=== PATIENT | female | born 1975 ===

== ENCOUNTER 2017-09-29 00:04 | Emergency (ER) | payer SELFPAY ==
[2017-09-29 00:05] VITALS: BMI 24.9
[2017-09-29 00:29] VITALS: RESP 20
[2017-09-29] MEDS ORDERED: Sodium Chloride 0.9% 1,000 ML IV ONE (01:15)
[2017-09-29] MEDS ORDERED: Aluminum Hydroxide/Magnesium Hydroxide Susp (30 mL) PO STA (01:15)
--- NOTE | 2017-09-29 02:04 | C.PDOC ---
History Of Present Illness Patient is a 42 y/o female who presents to the ED with a complaint of abdominal pain that began today s/p eating an egg and cheese sandwich. Patient describes pain as episodes of crampy abdominal pain and associated with some nausea and six episodes of diarrhea. Denies any vomiting. Notes some dizziness and mild headache. Patient notes still feeling nauseous with mild FAIR in ER. No other physical complaints. Time Seen by Provider: 09/29/17 00:35 Chief Complaint (Nursing): Abdominal Pain History Per: Patient History/Exam Limitations: no limitations Onset/Duration Of Symptoms: Hrs (this morning) Current Symptoms Are (Timing): Still Present Context: Food Location Of Pain/Discomfort: Diffuse Quality Of Discomfort: Cramping Associated Symptoms: Nausea, Diarrhea. denies: Vomiting Last Bowel Movement: Today Recent travel outside of the [place]: No Past Medical History Reviewed: Historical Data, Nursing Documentation, Vital Signs Vital Signs: Last Vital Signs Temp 97.8 F 09/29/17 03:05 Pulse 60 09/29/17 03:05 Resp 20 09/29/17 03:05 BP 114/76 09/29/17 03:05 Pulse Ox 100 09/29/17 03:05 - Medical History PMH: Asthma Denies: Chronic Kidney Disease Surgical History: No Surg Hx Family History: States: No Known Family Hx - Social History Hx Tobacco Use: No Hx Alcohol Use: Yes Hx Substance Use: No - Immunization History Hx Tetanus Toxoid Vaccination: No Hx Influenza Vaccination: Yes (2017) Hx Pneumococcal Vaccination: No Review Of Systems Constitutional: Negative for: Fever, Chills Gastrointestinal: Positive for: Nausea, Abdominal Pain, Diarrhea. Negative for : Vomiting Neurological: Positive for: Headache, Dizziness Physical Exam - Physical Exam Appears: Well, Non-toxic, No Acute Distress Skin: Normal Color, Warm, Dry Head: Atraumatic, Normacephalic Oral Mucosa: Moist Chest: Symmetrical Cardiovascular: Rhythm Regular, No Murmur Respiratory: Normal Breath Sounds, No Rales, No Rhonchi, No Wheezing Gastrointestinal/Abdominal: Soft, No Tenderness, No Distention, No Guarding, No Rebound Extremity: Normal ROM (x4) Neurological/Psych: Oriented x3, Normal Speech, Normal Cognition Gait: Steady ED Course And Treatment - Laboratory Results Result Diagrams: 09/29/17 02:04 09/29/17 02:04 ECG: Interpreted By Me, Viewed By Me ECG Rhythm: Sinus Rhythm Interpretation Of ECG: short NC 100. QRS 84. QT 450. QTC 453. no ischemic changes Rate From EC (bpm) O2 Sat by Pulse Oximetry: 99 Progress Note: EKG, blood work, CBC ordered. Zofran, pepcid, maalox, GI cocktail administered. Disposition Counseled Patient/Family Regarding: Diagnosis, Need For Followup - Disposition Referrals: [facility] [Outside] [facility] [Outside] [facility] [Outside] Disposition: HOME/ ROUTINE Disposition Time: 02:54 Condition: GOOD Additional Instructions: return if sympotms return or worsen/ Prescriptions: Famotidine [Pepcid] 40 mg PO DAILY 5 Days #5 tablet Instructions: Viral Gastroenteritis, Acute Abdomen (Belly Pain), Adult (DC), Nausea and Vomiting, Adult (DC), Stomach Ache and Stomach Upset Forms: [facility] (Albanian) - Clinical Impression Clinical Impression: Abdominal wall pain, Nausea, Diarrhea - Scribe Statement The provider has reviewed the documentation as recorded by the Scribe Toña Weiss All medical record entries made by the Scribe were at my direction and personally dictated by me. I have reviewed the chart and agree that the record accurately reflects my personal performance of the history, physical exam, medical decision making, and the department course for this patient. I have also personally directed, reviewed, and agree with the discharge instructions and disposition.
[2017-09-29] MEDS ORDERED: Aluminum Hydroxide/Magnesium Hydroxide Susp (30 mL) ONE (02:07)
[2017-09-29 02:09] LABS: BASO % 0.5 % (0.0-2.0); EOS # 0.2 K/uL (0.0-0.7); HEMOGLOBIN 11.9 g/dL (11.0-16.0); LYMPH # 2.5 K/uL (1.0-4.3); LYMPH % 31.9 % (20.0-40.0); MEAN CELL VOLUME 86.8 fL (81.0-99.0); MEAN CORPUSCULAR HEMOGLOBIN 29.8 pg (27.0-31.0); MEAN CORPUSCULAR HGB CONC 34.3 g/dL (33.0-37.0); MEAN PLATELET VOLUME 7.6 fL (7.2-11.7); MONO # 0.7 K/uL (0.0-0.8); MONO % 9.6 % (0.0-10.0); NEUT # 4.3 K/uL (1.8-7.0); RBC 3.99 Mil/uL (3.80-5.20); WHITE BLOOD COUNT 7.8 K/uL (4.8-10.8)
[2017-09-29 02:21] LABS: ALB/GLOB RATIO 1.1 (1.0-2.1); ALBUMIN 4.4 g/dL (3.5-5.0); ALT/SGPT 27 U/L (9-52); AST/SGOT 22 U/L (14-36); BLOOD UREA NITROGEN 9 mg/dL (7-17); CALCIUM 9.3 mg/dl (8.6-10.4); GFR AFRICAN-AMERICAN > 60; GFR NON-AFRICAN AMERICAN > 60; LIPASE 55 U/L (23-300)
[2017-09-29 03:06] VITALS: BP 114/76; PULSE 60; TEMP 97.8
[2017-09-29 03:17] VITALS: O2SAT 99
--- NOTE | 2017-10-02 12:09 | CARD ---
APPROVED REPORT EKG Measurement Heart [id number] WV 100P4 [id number] <Conclusion> Sinus rhythm with short [place] Junctional ST depression, probably normal Borderline ECG
== END 2017-09-29 03:22 | disposition home or self-care (01) ==
LOC: C.ER 00:04
DX: R10.9 Unspecified abdominal pain (principal); R11.0 Nausea; R19.7 Diarrhea, unspecified
CPT/HCPCS: 80053; 83690; 85025; 96374; 96375; 99284; J2405; J7030